=== PATIENT | female | born 1985 | race Caucasian/White ===

== ENCOUNTER → 2017-01-23 | Outpatient (CLI) | payer OTHER ==
[~2017-01-23] MED LIST: ADVIL200 M3; ALBUTEROL17 GM INH; ALLERCLEAR10 MG PO; ANTIDEPRESSANT; GABAPENTIN400 M2 PO; HCTZ PO; MEDI-MECLIZINE25 M1 PO; NO MEDICATIONS; PREDNISONE PO; PRENATAL MULITV1 TAB PO; PRINIVIL5 MG PO; VOLTAREN50 MG PO
== END | disposition home or self-care (01) ==
LOC: CBAR 09:52
DX: Z01.812 Encounter for preprocedural laboratory examination (principal); E66.01 Morbid (severe) obesity due to excess calories
CPT/HCPCS: 36415; 84443; 86677; G0463

== ENCOUNTER → 2017-02-05 | Outpatient (CLI) | payer OTHER ==
--- NOTE | ~2017-02-05 | CR63 ---
[facility] A Service of [facility] & [facility] RADIOLOGY TEXT RESULTS PATIENT: MARITZA ROTHMAN LOCATION: [facility] : 84 UNIT #: [id number] AGE: [address]: Karl Crabtree III, MD SEX: F ORDER DR: [id number] [facility] [address] [place], [place] [address] [id number] O MR#: [id number] Acc #: [id number] NAME: MARITZA ROTHMAN : 1985 SEX: F STUDY DATE/TIME: 02/05/2017 7:45 UNIT: [facility] ROOM: STUDY DESCRIPTION: CR Chest 2 View Attending Physician: Karl Crabtree III, M.D. Referring Physician: Karl Crabtree III, M.D. Ordering Physician: Karl Crabtree III, M.D. Primary Care Physician: Lesley Ashley M.D. MEDICAL IMAGING REPORT This report is preliminary unless electronic signature is present EXAM Two-view chest 02/05/2017 HISTORY Preoperative respiratory clearance prior to gastric lap-band placement and possible paraesophageal hernia repair. Morbid obesity. COMPARISON: Chest 10/19/2014 FINDINGS 2 views of the chest demonstrate clear lungs. No pleural effusion or pneumothorax. Heart size and mediastinum normal. Pulmonary vasculature normal. IMPRESSION No acute cardiopulmonary findings Dictated by... Michael Clay M.D. THIS IS AN ELECTRONICALLY VERIFIED REPORT Michael Clay M.D. at 02/05/2017 6:38 PM TERRANCE/connor TD: 02/05/2017 11:09 JOB #: [id number] MEDICAL IMAGING REPORT Page 1 of 1 COPY
--- NOTE | ~2017-02-05 | EKG ---
PATIENT: MARITZA ROTHMAN UNIT #: [id number] Ventricular Rate: 74 BPM Atrial Rate: 74 BPM P-R Interval: 174 ms QRS Duration: 90 ms Q-T Interval: 398 ms QTC Calculation(Bezet): 441 ms P Simms: 34 degrees Calculated R Simms: 65 degrees Calculated T Simms: 64 degrees Diagnosis Line: Normal sinus rhythm Diagnosis Line: Normal ECG Diagnosis Line: When compared with ECG of 16-AUG-2015 11:19, Diagnosis Line: No significant change was found Diagnosis Line: Confirmed by ROSAURA SHUKLA MD ([id number]) on Diagnosis Line: 02/05/2017 4:38:39 PM INTERPRETING MD: VAZQUEZ DAVIS
--- NOTE | ~2017-02-05 | CR97 ---
[facility] A Service of [facility] RADIOLOGY TEXT RESULTS PATIENT: MARITZA ROTHMAN LOCATION: [facility] : 84 UNIT #: [id number] AGE: [address]: Kalr Crabtree III, MD SEX: F ORDER DR: [id number] [place], [place] [address] [id number] O MR#: [id number] Acc #: [id number] NAME: MARITZA ROTHMAN : 1985 SEX: F STUDY DATE/TIME: 02/05/2017 9:00 UNIT: [facility] ROOM: STUDY DESCRIPTION: CR Esophagram Attending Physician: Karl Crabtree III, M.D. Referring Physician: Karl Crabtree III, M.D. Ordering Physician: Karl Crabtree III, M.D. Primary Care Physician: Lesley Ashley M.D. MEDICAL IMAGING REPORT This report is preliminary unless electronic signature is present EXAM Single contrast barium esophagram INDICATION Preoperative examination prior to laparoscopic gastric banding procedure. TECHNIQUE Thin barium was administered and multiple fluoroscopic images were obtained. FINDINGS The patients thoracic esophagus was of normal caliber. There is no evidence of stricture or mass lesion. Esophageal motility is within normal limits. No hiatal hernia was seen. Patient was noted to have spontaneous reflux into the mid to upper thoracic esophagus. Total fluoroscopy time was 0.3 minutes. A total of 14 fluoroscopic images were obtained. IMPRESSION Spontaneous reflux seen into the mid to upper thoracic esophagus. Otherwise unremarkable single contrast barium esophagram. Dictated by... Marycarmen Morales M.D. THIS IS AN ELECTRONICALLY VERIFIED REPORT Marycarmen Morales M.D. at 02/08/2017 8:16 AM RYLAND/sheyla TD: 02/07/2017 08:42 [facility] A Service of [facility] RADIOLOGY TEXT RESULTS PATIENT: MARITZA ROTHMAN LOCATION: [facility] : 84 UNIT #: [id number] AGE: [address]: Karl Crabtree III, MD SEX: F ORDER DR: JOB #: [id number] MEDICAL IMAGING REPORT Page 1 of 1 COPY
[2017-02-05 09:52] LABS: HEMATOCRIT 45.6 % (35.0-45.0); HEMOGLOBIN 15.1 gm/dL (12.0-16.0); MEAN CELL VOLUME 93.8 FL (83-96); MEAN CORPUSCULAR HEMOGLOBIN 31.2 PG (28-34); MEAN CORPUSCULAR HGB CONC 33.2 g/dL (30-36); MEAN PLATELET VOLUME 8.5 FL (6.5-11.5); RED BLOOD COUNT 4.86 X10e (3.90-5.30); RED CELL DISTRIBUTION WIDTH 13.4 % (11.0-15.5); WHITE BLOOD COUNT 8.4 X10e3 (4.0-10.5)
[2017-02-05 10:28] LABS: ALBUMIN SERUM 4.2 g/dL (3.5-5.0); BILIRUBIN,TOTAL 0.6 mg/dL (0.2-2.0); BUN/CREATININE RATIO 18.57; CALCIUM SERUM 9.3 mg/dL (8.4-10.2); CREATININE SERUM 0.7 mg/dL (0.6-1.4); GLOM FILT RATE Estimated 114.6 mL/min (>60); POTASSIUM 4.3 mmol/L (3.5-5.1); PROTEIN TOTAL SERUM 7.5 g/dL (6.0-8.3)
== END | disposition home or self-care (01) ==
LOC: CRAD 07:32
PROVIDERS: Surgery
DX: Z01.818 Encounter for other preprocedural examination (principal); E66.01 Morbid (severe) obesity due to excess calories; K21.9 Gastro-esophageal reflux disease without esophagitis
CPT/HCPCS: 36415; 71020; 74220; 80053; 80061; 84443; 85027; 93005

== ENCOUNTER → 2017-02-20 | Day surgery (SDC) | payer OTHER ==
--- NOTE | ~2017-02-20 | CR7 ---
[facility] A Service of [facility] & [facility] RADIOLOGY TEXT RESULTS PATIENT: MARITZA ROTHMAN LOCATION: [facility] : 84 UNIT #: [id number] AGE: [address]: Corby Painting MD SEX: F ORDER DR: [id number] [facility] [address] [place], [place] [address] [id number] O MR#: [id number] Acc #: [id number] NAME: MARITZA ROTHMAN : 1985 SEX: F STUDY DATE/TIME: 02/20/2017 8:49 UNIT: [facility] ROOM: STUDY DESCRIPTION: CR Abdomen Single AP View Attending Physician: Corby Painting M.D. Ordering Physician: Corby Painting M.D. Primary Care Physician: Lesley Ashley M.D. MEDICAL IMAGING REPORT This report is preliminary unless electronic signature is present EXAM Frontal abdomen 02/20/2017 INDICATION Lap-Band placement. Placement today. Morbid obesity. TECHNIQUE Frontal abdomen was performed. No comparisons. FINDINGS There is a Lap-Band present. The phi angle is approximately 60 degrees. Postop change of cholecystectomy present. No dilated air-filled loops of bowel. IMPRESSION The Lap-Band phi angle is about 60 degrees. Dictated by... Otf Sanchez M.D. THIS IS AN ELECTRONICALLY VERIFIED REPORT Otf Sanchez M.D. at 02/20/2017 12:27 PM MAXIMO/sheyla TD: 02/20/2017 09:27 JOB #: [id number] MEDICAL IMAGING REPORT Page 1 of 1 COPY
--- NOTE | ~2017-02-20 | OR ---
Unit #: [id number] #: [id number] Patient: MARITZA ROTHMAN [id number] [address] [place], [place] [address] [id number] O MR#: [id number] NAME: MARITZA ROTHMAN ROOM: Date of Procedure: 02/20/2017 Admission Date: 02/20/2017 Surgeon: Karl Crabtree III, M.D. : 1985 Attending Physician: Corby Painting M.D. Primary Care Physician: Lesley Ashley M.D. OPERATIVE REPORT PREOPERATIVE DIAGNOSIS Chronic morbid obesity. POSTOPERATIVE DIAGNOSIS Chronic morbid obesity. SECONDARY DIAGNOSIS Anterior paraesophageal hernia. PROCEDURE PERFORMED Laparoscopic adjustable gastric banding (AP standard with regular port and laparoscopic paraesophageal hernia repair). ADDRESSOGRAPH OPERATOR Dr. Corby Painting. SPECIMENS None. COMPLICATIONS None apparent. ESTIMATED BLOOD LOSS Minimal. INDICATIONS FOR PROCEDURE This is a 31-year-old lady, who has chronic morbid obesity with a BMI of 55 and associated comorbidities of sleep apnea. She has been through the bariatric program at [facility] and understands the risks and benefits of the procedure. DESCRIPTION OF PROCEDURE After consent was obtained, including the risks and benefits of slippage, erosion, port dysfunction, and possible failure of weight loss due to noncompliance, the patient was taken to the operating room and placed in the supine position. General anesthetic was administered and the abdomen was prepped and draped in standard surgical fashion. I began by making a 2 cm incision just above and to the left of the umbilicus. I used a Visiport to enter the peritoneal cavity without any difficulty. C02 pneumoperitoneum was then established. Next, I placed a 5 mm port in the right upper quadrant, a 5 mm Jorge Luis liver retractor in Unit #: [id number] #: [id number] Patient: MARITZA ROTHMAN the subxiphoid region to provide exposure of the gastroesophageal junction. Next, a 10 mm port was placed in the left upper quadrant and a 5 mm port was placed in the left lateral subcostal region. I began by performing an examination of the GE junction to evaluate for a hiatal hernia. We then scored the peritoneal attachments overlying the angle of His. I then opened up the clear space in the gastrohepatic ligament, and then using 2 blunt graspers, I identified the small fat pad crossing over the right crura. I swept the fat anterior to the crura off the crura and using the pars flaccida, I created a retrogastric tunnel where the blunt grasper exited at the angle of His. Once I had made this tunnel safely, I then inserted an Allergan AP band into the abdominal cavity. This adjustable gastric band was then place around the upper part of the stomach and fastened and buckled anteriorly. We then tacked the lateral fundus over the band to the proximal pouch with 2 interrupted 0 Ethibond sutures. I then used a third stitch to imbricate the excess anterior stomach by going from the lesser curvature up towards where the last stitch was placed. We then had excellent hemostasis. I removed the Jorge Luis liver retractor. We then removed the port tubing through the initial port incision. The rest of the ports were removed, and the pneumoperitoneum was released. I then left a small tail on the tubing. We then attached the port to the excess band tubing. We placed a piece of Prolene mesh along the back side of the port and used a Prolene stitch to anchor this mesh in place. We then trimmed the excess mesh so that just a small footprint of mesh was in place behind the port. I then inserted the tubing back into the abdominal cavity, and we placed the port into a small pocket that was made just inferior to where our initial port incision was made. The mesh was in direct contact with the fascia, and this will scar in place to hold the port in place. We then injected all the port sites with 0.25% plain Marcaine, and I reapproximated the skin edges with interrupted 4-0 Vicryl subcuticular sutures. Steri-strips were then applied. The patient tolerated the procedure without any problems and returned to the recovery room in stable condition. ADDENDUM After exposure of the GE junction, the patient was noted to have a small to medium sized anterior paraesophageal hernia. I scored the phrenoesophageal ligament, reduced the hernia defect including the hernia sac and excised that. I then after identifying both the right and left crura, reapproximated the defect with an interrupted 0 Ethibond [id number] suture. I then proceeded with the case as listed above. Dictated by... Karl Crabtree III, M.D. VCL/robyn TD: 02/20/2017 17:41 JOB #: [id number] Unit #: [id number] #: [id number] Patient: MARITZA ROTHMAN OPERATIVE REPORT Page 1 of 1 X Karl Crabtree III, MD PROCEDURE OPERATIVE NOTE
== END | disposition home or self-care (01) ==
LOC: CSUR 06:09
DX: E66.01 Morbid (severe) obesity due to excess calories (principal); K44.9 Diaphragmatic hernia without obstruction or gangrene; G47.30 Sleep apnea, unspecified; F17.210 Nicotine dependence, cigarettes, uncomplicated; Z68.43 Body mass index [BMI] 50.0-59.9, adult; Z90.49 Acquired absence of other specified parts of digestive tract; Z90.721 Acquired absence of ovaries, unilateral
CPT/HCPCS: 74000; 84703; C1781; J0690; J1650; J1885; J2250; J2405; J3010